=== PATIENT | female | born 1960 | race American Indian/Alaskan Native ===

== ENCOUNTER 2018-08-01 08:39 | Outpatient (CLI) | payer MEDICARE ==
--- NOTE | 2018-08-01 10:11 | Mammography Report ---
Bilateral diagnostic mammogram, spot compression of densities left breast and sonogram right and left breast: No previous studies available for comparison. CAD study utilized. History: Bilateral breast lumps. Findings: Heterogeneous breast parenchyma bilaterally. Focal asymmetric densities left breast which appears normal breast parenchyma on spot compression views. No microcalcifications. Normal axilla. Sonographic examination of right and left breast reveals normal right breast. There is complex cyst identified at left breast at 2:00 position 5 cm from nipple. No abnormal color flow. Impression: Complex cyst 12:00 position left breast. No definite corresponding mass on mammogram. Probably benign. Six-month followup left mammogram and sonogram recommended. BI-RADS CATEGORY: 3 = Probably benign ACR BI-RADS MAMMOGRAPHIC CODES: 0 = Needs additional imaging evaluation; 1 = Negative; 2 = Benign; 3 = Probably benign; 4 = Suspicious; 5 = Malignant; 6 = Known biopsy-proven malignancy COMMENT: 1. Dense breast tissue, i.e., adenosis, fibrocystic changes, etc., may obscure an underlying neoplasm. 2. Approximately 10% of cancers are not detected with mammography. 3. A negative mammography report should not delay biopsy if a clinically suspicious mass is present. COMMENT: Patient follow-up letters are generated in [employer].
== END 2018-08-01 08:40 | disposition home or self-care (01) ==
LOC: SPVWC 08:39
PROVIDERS: ATTEND Internal Medicine
DX: N60.02 Solitary cyst of left breast (principal)
CPT/HCPCS: 77066

== ENCOUNTER 2019-02-13 13:57 | Emergency (ER) | payer MEDICARE, OTHER ==
--- NOTE | 2019-02-13 16:30 | Emergency Department Report ---
ED Chest Pain HPI - General Chief Complaint: Chest Pain Stated Complaint: CHEST PAIN Time Seen by Provider: 02/13/19 16:13 Source: patient, family, EMS Mode of arrival: Stretcher Limitations: Physical Limitation - History of Present Illness Initial Comments: Ms. 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 She was discharged in December from [facility] on [address]. Her blood sugar had dropped to zero at that time. Consequently, she was diagnosed with possible CVA. As a result of major CVA in 2004, she did not have use of her left side. As a result of severe hypoglycemia in December, she is unable to ambulate. Today her home health nurse and physical therapist today noticed that she was sleepier than normal. She has had extremity pain since discharge from hospital. Her PCP has evaluated her for hip pain last week. Today she had chest pain mild chest worse with inspiration. She describes a soreness. She is awake and able to give a full hx. PCP Dr. Ocasio Only medication mother can recall, daily nightly tramadol -: Gradual Onset: during rest Pain Location: substernal Severity: mild, moderate Quality: sharp Consistency: now resolved Worsens With: inspiration Context: recent illness, recent immobilization - Related Data Allergies Allergy/AdvReac Type Severity Reaction Status Date / Time No Known Allergies Allergy Unverified 02/13/19 18:13 Heart Score - HEART Score History: Slightly suspicious EKG: Non-specific Age: 45-65 Risk factors: 1-2 risk factors Troponin: < normal limit HEART Score: 3 ED Review of Systems ROS: Stated complaint: CHEST PAIN Other details as noted in HPI Comment: All other systems reviewed and negative Respiratory: shortness of breath. denies: cough Cardiovascular: chest pain ED Past Medical Hx - Past Medical History Previous Medical History?: Yes Hx CVA: Yes Hx Congestive Heart Failure: Yes Hx Diabetes: Yes - Surgical History Past Surgical History?: Yes Additional Surgical History: 2005, pancreas resection due to tumor - Social History Smoking Status: Never Smoker Substance Use Type: None ED Physical Exam - General Limitations: Physical Limitation (patient is able to give a full history) General appearance: alert, in no apparent distress, other (appears chronically ill easily arousable) - Head Head exam: Present: atraumatic, normocephalic - Eye Eye exam: Present: normal appearance - ENT ENT exam: Present: mucous membranes moist - Neck Neck exam: Present: normal inspection - Respiratory Respiratory exam: Present: normal lung sounds bilaterally. Absent: respiratory distress, wheezes, rales, rhonchi - Cardiovascular Cardiovascular Exam: Present: regular rate, normal rhythm, normal heart sounds. Absent: systolic murmur, diastolic murmur, rubs, gallop - GI/Abdominal GI/Abdominal exam: Present: soft, normal bowel sounds. Absent: distended, tenderness, guarding, rebound - Back Exam Back exam: Present: normal inspection - Neurological Exam Neurological exam: Present: alert, oriented X3 - Psychiatric Psychiatric exam: Present: normal mood, flat affect - Skin Skin exam: Present: warm, dry, intact, normal color. Absent: rash ED Course Vital Signs 02/13/19 02/13/19 02/13/19 14:56 15:01 15:15 Temperature 98.1 F Pulse Rate 91 H 90 90 Respiratory 14 13 12 Rate Blood Pressure 133/88 134/90 Blood Pressure [Left] O2 Sat by Pulse 100 Oximetry 02/13/19 02/13/19 02/13/19 15:31 15:45 16:01 Temperature Pulse Rate 92 H 90 89 Respiratory 13 12 12 Rate Blood Pressure 134/93 133/90 134/89 Blood Pressure [Left] O2 Sat by Pulse 100 100 100 Oximetry 02/13/19 02/13/19 02/13/19 16:15 16:31 16:45 Temperature Pulse Rate 92 H 91 H 94 H Respiratory 13 11 L 12 Rate Blood Pressure 136/88 139/91 140/97 Blood Pressure [Left] O2 Sat by Pulse 100 100 100 Oximetry 02/13/19 02/13/19 02/13/19 17:01 17:15 17:31 Temperature Pulse Rate 100 H 96 H 95 H Respiratory 16 15 17 Rate Blood Pressure 140/97 131/98 141/95 Blood Pressure [Left] O2 Sat by Pulse 100 100 100 Oximetry 02/13/19 02/13/19 02/13/19 17:45 18:01 18:51 Temperature Pulse Rate 92 H 102 H 89 Respiratory 12 12 11 L Rate Blood Pressure 137/93 133/98 Blood Pressure [Left] O2 Sat by Pulse 100 100 100 Oximetry 02/13/19 19:15 Temperature 97.6 F Pulse Rate 88 Respiratory 12 Rate Blood Pressure Blood Pressure 136/93 [Left] O2 Sat by Pulse 100 Oximetry ED Medical Decision Making - Lab Data Result diagrams: 02/13/19 15:39 02/13/19 15:39 - EKG Data 02/13/19 16:30 EKG obtained at 1547 Rate 90 beats a minute normal sinus rhythm normal axis left bundle branch block no ST elevation enlarged P waves - Medical Decision Making Ms. Wilder presents with chest pain and lethargy. No indication of ACS. CTA negative for PE. She has been awake and alert the entire ED encounter. She ate a food tray prior to discharge. labs reviewed unremarkable dc home no chest pain upon discharge Critical care attestation.: If time is entered above; I have spent that time in minutes in the direct care of this critically ill patient, excluding procedure time. ED Disposition Clinical Impression: Chest pain, Lethargy Disposition: DC-01 TO HOME OR SELFCARE Is pt being admited?: No Does the pt Need Aspirin: No Condition: Stable Instructions: Chest Pain (ED)
[2019-02-13 17:15] LABS: Basophils % (Auto) 1.6 % (0.0-1.8); Eosinophils % (Auto) 0.9 % (0.0-4.3); Hematocrit 33.1 % (30.3-42.9); Hemoglobin 10.8 gm/dl (10.1-14.3); Lymphocytes # (Auto) 1.2 K/mm3 (1.2-5.4); Lymphocytes % (Auto) 40.5 % (13.4-35.0); Mean Corpuscular HGB Conc 33 % (30-34); Mean Corpuscular Volume 99 fl (79-97); Monocytes # (Auto) 0.3 K/mm3 (0.0-0.8); Monocytes % (Auto) 10.1 % (0.0-7.3); Platelet Count 281 K/mm3 (140-440); Red Blood Count 3.33 M/mm3 (3.65-5.03); Red Cell Distribution Width 19.9 % (13.2-15.2)
[2019-02-13 17:28] LABS: BUN/Creatinine Ratio 27; Blood Urea Nitrogen 24 mg/dL (7-17); Calcium 8.5 mg/dL (8.4-10.2); Hemolysis Index 21
--- NOTE | 2019-02-13 17:29 | XRay Report ---
PROCEDURE: XR CHEST 1V AP TECHNIQUE: Frontal portable view of the chest HISTORY: Chest Pain COMPARISONS: None FINDINGS: There is prominence of the interstitial markings in both lungs with peribronchial thickening, acute v ersus chronic. There are patchy areas of pulmonary consolidation in both lung bases. Atelectasis versus infiltrates. There is no evidence of pneumothorax or pleural fluid collection. There is mild prominence of the pulmonary venous vasculature suggestive of pulmonary venous congestio n. The cardiac silhouette is enlarged. The thoracic aorta is mildly tortuous. The bony structures are notable for mild dextrocurvature of the thoracic spine. IMPRESSION: 1. Enlarged cardiac silhouette. 2. Prominence of the interstitial markings with peribronchial thickening, acute versus chronic with t he appearance of pulmonary venous congestion and atelectasis versus infiltrates both lung bases. A component of CHF needs to be considered. An acute infectious process cannot entirely be excluded. Comparison with previous imaging studies would be helpful. If further imaging is required, PA and lat eral views of the chest or CT chest may be helpful. This document is electronically signed by Grace Fan MD., Feb 13 2019 05:27:26 PM ET
[2019-02-13 18:01] LABS: Bilirubin,Urine NEG (Negative); Blood,Urine NEG (Negative); Color,Urine Yellow (Yellow); Mucus,Urine FEW /HPF; Protein,Urine <15 mg/dL mg/dL (Negative); RBC,Urine < 1.0 /HPF (0.0-6.0); Urobilinogen,Urine < 2.0 mg/dL (<2.0)
[2019-02-13 18:07] LABS: Amphetamine Screen,Urine PRESUMPTIVE NEGATIVE; Benzodiazepines Screen,Urine PRESUMPTIVE NEGATIVE; Cannabinoid Screen,Urine PRESUMPTIVE NEGATIVE; Cocaine Screen,Urine PRESUMPTIVE NEGATIVE; Methadone Screen,Urine PRESUMPTIVE NEGATIVE; Opiate Screen,Urine PRESUMPTIVE NEGATIVE
--- NOTE | 2019-02-13 19:23 | Cat Scan Report ---
PROCEDURE: CT ANGIOGRAM OF THE CHEST FOR PULMONARY EMBOLISM TECHNIQUE: Computerized axial tomographic angiography of the chest and pulmonary arteries was perfor med after the IV injection of iodinated nonionic contrast. The image data was postprocessed using max imum intensity projection (MIP) and 2-dimensional multiplanar reformatted (MPR) techniques. The exami nation is specifically tailored to the evaluation of the pulmonary arteries per clinical request. Au tomated exposure control, adjustment of mA and/or kV according to patient size, or iterative reconstr uction dose optimization techniques were utilized. CPT G9637, 92491 HISTORY: Shortness of breath R06.02, chest pain unspecified R07.9 , COMPARISONS: None . FINDINGS: Heart and pericardium: Prominent heart size. Small pericardial effusion, measuring 7 mm in thickness. Thoracic aorta: Normal. Pulmonary vasculature: Normal. No pulmonary emboli. Lymph nodes: No enlarged thoracic lymph nodes. Lungs: Normal. Pleural space: No effusion, thickening, or pneumothorax. Musculoskeletal structures: No significant abnormality. Upper abdominal structures: Mild left hydronephrosis. IMPRESSION: No evidence of pulmonary emboli. There is mild left hydronephrosis, of uncertain etiology. This document is electronically signed by Gemma Vela MD., Feb 13 2019 07:20:54 PM ET
[2019-02-13 19:54] VITALS: BP 136/93
[2019-02-13] MEDS ORDERED: BENADRYL IV ONE (20:20)
== END 2019-02-13 20:30 | disposition home or self-care (01) ==
LOC: ED 13:57
DX: R53.83 Other fatigue (principal); R07.89 Other chest pain; R06.02 Shortness of breath; I11.0 Hypertensive heart disease with heart failure; I50.9 Heart failure, unspecified; E11.9 Type 2 diabetes mellitus without complications; Z86.73 Personal history of transient ischemic attack (TIA), and cerebral infarction without residual deficits
CPT/HCPCS: 36415; 71045; 71275; 80048; 80307; 81001; 84484; 85025; 85379; 93005; 93010; 96374; 99285; J1200; Q9967

== ENCOUNTER 2019-08-23 12:40 | Outpatient (CLI) | payer MEDICARE ==
--- NOTE | 2019-08-26 16:09 | Mammography Report ---
DIGITAL SCREENING MAMMOGRAM WITH CAD, 08/23/2019 INDICATION: Routine screening mammography. TECHNIQUE: Digital bilateral 2D mammography was obtained in the craniocaudal and mediolateral obliq ue projections. This examination was interpreted with the benefit of Computer-Aided Detection analysi s. COMPARISON: 08/01/2018 FINDINGS: Breast Density: The breasts are heterogeneously dense, which may obscure small masses. There is no evidence of dominant mass, suspicious calcifications or architectural distortion in eithe r breast. IMPRESSION: No mammographic evidence of malignancy. Follow up recommendation: Routine yearly BI-RADS Category 1: Negative. A "normal" or negative report should not discourage follow up or biopsy of a clinically significant f inding. A written summary of these findings will be mailed to the patient. The patient will be entered into a mammography reporting system which will generate a reminder letter for the patient's next appointmen t at the appropriate interval. The [employer] recommends yearly mammograms starting at age 40 and continuing as l rolando as a woman is in good health. Breast MRI is recommended for women with an approximate 20-25% or greater lifetime risk of breast cancer, including women with a strong family history of breast or ova bill cancer or who have been treated for Hodgkin's disease. Signer Name: Tonio Fletcher MD Signed: 08/26/2019 4:05 PM Workstation Name: [id number]
== END 2019-08-23 12:41 | disposition home or self-care (01) ==
LOC: SPVWC 12:40
PROVIDERS: ATTEND Internal Medicine
DX: Z12.31 Encounter for screening mammogram for malignant neoplasm of breast (principal)
CPT/HCPCS: 77067

== ENCOUNTER 2022-01-17 02:57 | Inpatient (IN) | payer MEDICARE ==
--- NOTE | 2022-01-17 03:27 | Emergency Department Report ---
ED General Adult HPI - General Chief complaint: Altered Mental Status Stated complaint: LOW BLOOD SUGAR Time Seen by Provider: 01/17/22 03:26 Source: EMS Mode of arrival: Stretcher Limitations: Altered Mental Status - History of Present Illness Initial comments: patient presents / being found unresponsive by her family member. Per EMS, by the time they got there, the police had been doing 1 round of CPR. Patient however had a pulse. Her BG was found to be 32. She received an amp of D50W after whcvih her BG was up to the 110a and she woke up. Patient here is somnolent but easily arousable to verbal stimuli. Now complaining only of CP. Denies SOB, abd pain, focal numbness or weakness. - Related Data Home Medications Medication Instructions Recorded Confirmed Last Taken Aspirin [Aspirin BABY CHEW TAB] 81 mg PO DAILY 09/11/20 01/17/22 09/08/20 AtorvaSTATin [Lipitor] 40 mg PO DAILY 09/11/20 01/17/22 09/08/20 10:00 Cholecalciferol (Vitamin D3) 10,000 units PO DAILY 09/11/20 01/17/22 09/08/20 [Vitamin D3 10,000 unit] Escitalopram [Lexapro] 20 mg PO DAILY 09/11/20 01/17/22 09/08/20 10:00 Furosemide [Lasix TAB] 40 mg PO Q48HR 09/11/20 01/17/22 09/08/20 10:00 Insulin Detemir [Levemir VIAL] 10 unit SUB-Q QHS 09/11/20 01/17/22 Unknown Magnesium Oxide 400 mg PO DAILY 09/11/20 01/17/22 09/08/20 10:00 Metoprolol [Lopressor TAB] 50 mg PO BID 09/11/20 01/17/22 09/08/20 22:00 NovoLOG 100 UNITS/ML VIAL See Protocol SUB-Q DAILY 09/11/20 01/17/22 09/08/20 levETIRAcetam [Keppra TAB] 500 mg PO DAILY 09/11/20 01/17/22 09/08/20 10:00 Previous Rx's Medication Instructions Recorded Last Taken Type Ibuprofen [Motrin 400 MG tab] 400 mg PO Q8H PRN #30 tablet 09/14/20 Unknown Rx Allergies Allergy/AdvReac Type Severity Reaction Status Date / Time No Known Allergies Allergy Unverified 02/13/19 18:13 ED Review of Systems ROS: Stated complaint: LOW BLOOD SUGAR Other details as noted in HPI Comment: All other systems reviewed and negative Constitutional: denies: chills, fever ED Past Medical Hx - Past Medical History Hx Hypertension: Yes Hx CVA: Yes Hx Heart Attack/AMI: No Hx Congestive Heart Failure: No Hx Diabetes: No Hx Pulmonary Embolism: No Hx Liver Disease: No Hx Renal Disease: No Hx Arthritis: No Hx Seizures: No Hx Kidney Stones: No Hx Asthma: No Hx COPD: No Hx Tuberculosis: No Hx Dementia: No Hx HIV: No - Surgical History Hx Coronary Stent: No Hx Open Heart Surgery: No Hx Internal Defibrillator: No Hx Cholecystectomy: No Hx Appendectomy: No Additional Surgical History: 2005, pancreas resection due to tumor - Social History Smoking Status: Unknown if ever smoked Substance Use Type: None - Medications Home Medications: Home Medications Medication Instructions Recorded Confirmed Last Taken Type Aspirin [Aspirin BABY CHEW TAB] 81 mg PO DAILY 09/11/20 01/17/22 09/08/20 History AtorvaSTATin [Lipitor] 40 mg PO DAILY 09/11/20 01/17/22 09/08/20 10:00 History Cholecalciferol (Vitamin D3) 10,000 units PO DAILY 09/11/20 01/17/22 09/08/20 History [Vitamin D3 10,000 unit] Escitalopram [Lexapro] 20 mg PO DAILY 09/11/20 01/17/22 09/08/20 10:00 History Furosemide [Lasix TAB] 40 mg PO Q48HR 09/11/20 01/17/22 09/08/20 10:00 History Insulin Detemir [Levemir VIAL] 10 unit SUB-Q QHS 09/11/20 01/17/22 Unknown History Magnesium Oxide 400 mg PO DAILY 09/11/20 01/17/22 09/08/20 10:00 History Metoprolol [Lopressor TAB] 50 mg PO BID 09/11/20 01/17/22 09/08/20 22:00 History NovoLOG 100 UNITS/ML VIAL See Protocol SUB-Q DAILY 09/11/20 01/17/22 09/08/20 History levETIRAcetam [Keppra TAB] 500 mg PO DAILY 09/11/20 01/17/22 09/08/20 10:00 History Ibuprofen [Motrin 400 MG tab] 400 mg PO Q8H PRN #30 tablet 09/14/20 01/17/22 Unknown Rx ED Physical Exam - General Limitations: Altered Mental Status General appearance: other (somnolent but reponsive to verbal stimuli) - Head Head exam: Present: atraumatic, normocephalic - Eye Eye exam: Present: PERRL, EOMI - ENT ENT exam: Present: mucous membranes moist, other (airway patent) - Neck Neck exam: Present: other (supple; no JVD) - Respiratory Respiratory exam: Present: other (good air entry, nml I:E, CTAB, no use of LUIGI; tender to palpation over sternum and in bilateral paraternal areas) - Cardiovascular Cardiovascular Exam: Present: regular rate. Absent: rubs, gallop - GI/Abdominal GI/Abdominal exam: Present: soft, normal bowel sounds. Absent: distended, tenderness - Extremities Exam Extremities exam: Present: full ROM. Absent: tenderness - Back Exam Back exam: Present: other (no step offs). Absent: vertebral tenderness - Neurological Exam Neurological exam: Present: oriented X3, CN II-XII intact, other (GCS 14/15 ([id number])). Absent: motor sensory deficit ED Course Vital Signs 01/17/22 01/17/22 01/17/22 03:02 03:21 03:30 Temperature 92.5 F L Pulse Rate 58 L 62 62 Respiratory 18 16 14 Rate Blood Pressure 183/98 197/102 Blood Pressure 197/102 [Right] O2 Sat by Pulse 99 100 100 Oximetry 01/17/22 01/17/22 01/17/22 03:46 04:00 04:16 Temperature Pulse Rate 62 63 65 Respiratory 16 17 15 Rate Blood Pressure 190/94 190/94 188/92 Blood Pressure [Right] O2 Sat by Pulse 99 100 100 Oximetry 01/17/22 01/17/22 01/17/22 04:30 04:46 05:00 Temperature Pulse Rate 61 67 61 Respiratory 11 L 15 12 Rate Blood Pressure 169/83 190/79 151/82 Blood Pressure [Right] O2 Sat by Pulse 99 99 98 Oximetry 01/17/22 01/17/22 05:24 05:30 Temperature Pulse Rate 66 64 Respiratory 19 12 Rate Blood Pressure 143/85 143/85 Blood Pressure [Right] O2 Sat by Pulse 99 99 Oximetry ED Medical Decision Making - Lab Data Result diagrams: 01/17/22 04:12 01/17/22 04:12 Laboratory Tests 01/17/22 01/17/22 01/17/22 03:30 04:12 04:12 WBC 5.4 RBC 4.17 Hgb 13.1 Hct 40.7 MCV 98 H MCH 31 MCHC 32 RDW 14.3 Plt Count 258 Lymph % (Auto) 32.6 [place] % (Auto) 5.7 Eos % (Auto) 0.8 Baso % (Auto) 0.5 Lymph # (Auto) 1.8 [place] # (Auto) 0.3 Eos # (Auto) 0.0 Baso # (Auto) 0.0 Seg Neutrophils % 60.4 Seg Neutrophils # 3.2 Sodium 137 Potassium 4.6 Chloride 104.1 Carbon Dioxide 21 L Anion Gap 17 BUN 24 H Creatinine 1.0 Estimated GFR > 60 BUN/Creatinine Ratio 24 Glucose 117 H POC Glucose 112 H Calcium 9.9 Total Bilirubin 0.30 AST 32 ALT 16 Alkaline Phosphatase 115 Troponin T < 0.010 Total Protein 8.3 H Albumin 4.2 Albumin/Globulin Ratio 1.0 01/17/22 04:54 WBC RBC Hgb Hct MCV MCH MCHC RDW Plt Count Lymph % (Auto) [place] % (Auto) Eos % (Auto) Baso % (Auto) Lymph # (Auto) [place] # (Auto) Eos # (Auto) Baso # (Auto) Seg Neutrophils % Seg Neutrophils # Sodium Potassium Chloride Carbon Dioxide Anion Gap BUN Creatinine Estimated GFR BUN/Creatinine Ratio Glucose POC Glucose 94 Calcium Total Bilirubin AST ALT Alkaline Phosphatase Troponin T Total Protein Albumin Albumin/Globulin Ratio EKG: HR 60, SR (p waves present in II with regular RR intervals), wide QRS with upright RSR priming in V6 c/w LBBB; old compared with 02/13/2019 CXR: no acute cardiopulmonary process CT head: no acute intracranial abnormality Critical care attestation.: If time is entered above; I have spent that time in minutes in the direct care of this critically ill patient, excluding procedure time. ED Disposition Clinical Impression: Hypoglycemia, Unresponsiveness Hypothermia Qualifiers: Encounter type: initial encounter Qualified Code(s): T68.XXXA - Hypothermia, initial encounter Disposition: 09 ADMITTED INPATIENT Is pt being admited?: Yes Does the pt Need Aspirin: No Condition: Stable Time of Disposition: 06:10 (Patient admitted to Dr. Fine. Sign out was given by me to the admitting physician. )
[2022-01-17 04:21] LABS: Basophils % (Auto) 0.5 % (0.0-1.8); Eosinophils % (Auto) 0.8 % (0.0-4.3); Hematocrit 40.7 % (30.3-42.9); Hemoglobin 13.1 gm/dl (10.1-14.3); Lymphocytes # (Auto) 1.8 K/mm3 (1.2-5.4); Lymphocytes % (Auto) 32.6 % (13.4-35.0); Mean Corpuscular HGB Conc 32 % (30-34); Mean Corpuscular Volume 98 fl (79-97); Monocytes # (Auto) 0.3 K/mm3 (0.0-0.8); Monocytes % (Auto) 5.7 % (0.0-7.3); Platelet Count 258 K/mm3 (140-440); Red Blood Count 4.17 M/mm3 (3.65-5.03); Red Cell Distribution Width 14.3 % (13.2-15.2)
[2022-01-17 04:44] LABS: Alanine Aminotransferase 16 units/L (7-56); Albumin 4.2 g/dL (3.9-5); BUN/Creatinine Ratio 24; Blood Urea Nitrogen 24 mg/dL (7-17); Calcium 9.9 mg/dL (8.4-10.2); Hemolysis Index 20
--- NOTE | 2022-01-17 05:21 | XRay Report ---
Chest with RIBS bilateral INDICATION: Chest pain IMPRESSION: The lungs are hyperexpanded with emphysematous change. No displaced rib fracture identifi ed. Signer Name: Roberto Quintanilla MD Signed: 01/17/2022 5:16 AM Workstation Name: [id number]
--- NOTE | 2022-01-17 05:36 | Cat Scan Report ---
CT head without contrast INDICATION : Loss of consciousness. TECHNIQUE: Axial imaging performed from the skull apex through the skull base without the use of con trast. All CT examinations performed at this facility utilize dose modulation, iterative reconstruct ion or weight-based dosing, when appropriate, to reduce radiation dose to as low as reasonably achiev able. COMPARISON: None FINDINGS: No acute intracranial hemorrhage. Chronic encephalomalacia within the right frontoparietal lobe consistent with large chronic right MCA distribution infarct. No extra-axial collection. No hyd rocephalus. The orbits are unremarkable. The paranasal sinuses are clear. IMPRESSION: No acute intracranial abnormality or change from 09/10/2020. Signer Name: Roberto Quintanilla MD Signed: 01/17/2022 5:32 AM Workstation Name: [id number]
[2022-01-17] MEDS ORDERED: SODIUM CHLORIDE 0.9% 500 ML 500 ML ONE (06:32)
[2022-01-17] MEDS ORDERED: SODIUM CHLORIDE 0.9% 500 ML 500 ML IV ONE (06:35)
--- NOTE | 2022-01-17 08:06 | History and Physical Report ---
History of Present Illness History of present illness: HPI: 61-year-old female with past medical history of type 1 diabetes, insulinoma status post resection in 2005, stroke with residual left-sided deficits presenting to our facility with altered mental status. Per EMS, patient was unresponsive and police had been completing 1 round of CPR. However the patient did have a pulse her blood sugar was also found to be 32. She received an amp of D50 W and blood sugars increased to 110. Patient subsequently woke up however was somnolent and was transferred to our facility. Mother was present at bedside. Per the mother patient was having very variable blood sugar readings. She had elevated blood sugar reading in the 200s around lunch and patient was administered 6 units of regular insulin per the mother. She subsequently had low blood sugar reading in the evening and thus the patient had her evening long-acting insulin held. The patient stated that she was feeling much better on my encounter. She does not remember being encephalopathic when EMS had arrived to her residence. Remainder of ROS negative except for stated above Of note, patient has been diabetic since her insulinoma was removed in 2005. She follows with endocrinology outpatient and states that she takes both short and long-acting insulin. She did not know the exact dosages states that her mother helps her manage her insulin. When questioning the mother the mother stated she administers insulin on sliding scale and long-acting most nights. The mother and patient did not know the patient's hemoglobin A1c. PMHx: type 1 diabetes, insulinoma status post resection in 2005, stroke with residual left-sided deficits PSHx: Resection of insulinoma FHx: Reviewed noncontributory SHx: Tobacco use- ETOH Use-denies denies Recreational Drug Use- denies PCP-Dr. Majano Medications and Allergies Allergies Allergy/AdvReac Type Severity Reaction Status Date / Time No Known Allergies Allergy Unverified 02/13/19 18:13 Home Medications Medication Instructions Recorded Confirmed Last Taken Type Aspirin [Aspirin BABY CHEW TAB] 81 mg PO DAILY 09/11/20 01/17/22 09/08/20 H istory AtorvaSTATin [Lipitor] 40 mg PO DAILY 09/11/20 01/17/22 09/08/20 10:00 History Cholecalciferol (Vitamin D3) 10,000 units PO DAILY 09/11/20 01/17/22 09/08/20 History [Vitamin D3 10,000 unit] Escitalopram [Lexapro] 20 mg PO DAILY 09/11/20 01/17/22 09/08/20 10:00 History Furosemide [Lasix TAB] 40 mg PO Q48HR 09/11/20 01/17/22 09/08/20 10:00 History Insulin Detemir [Levemir VIAL] 10 unit SUB-Q QHS 09/11/20 01/17/22 Unknown History Magnesium Oxide 400 mg PO DAILY 09/11/20 01/17/22 09/08/20 10:00 History Metoprolol [Lopressor TAB] 50 mg PO BID 09/11/20 01/17/22 09/08/20 22:00 History NovoLOG 100 UNITS/ML VIAL See Protocol SUB-Q DAILY 09/11/20 01/17/22 09/08/20 History levETIRAcetam [Keppra TAB] 500 mg PO DAILY 09/11/20 01/17/22 09/08/20 10:00 History Ibuprofen [Motrin 400 MG tab] 400 mg PO Q8H PRN #30 tablet 09/14/20 01/17/22 Unknown Rx Active Meds: Active Medications Acetaminophen (Acetaminophen 325 Mg Tab) 650 mg PO Q4H PRN PRN Reason: Pain MILD(1-3)/Fever >100.5/SANCHEZ Dextrose (Dextrose 50% In Water (25gm) 50 Ml Syringe) 50 ml IV Q30MIN PRN; Protocol PRN Reason: Hypoglycemia Enoxaparin Sodium (Enoxaparin 40 Mg/0.4 Ml Inj) 40 mg SUB-Q QDAY JAKE Insulin Human Lispro (Insulin Lispro 100 Unit/Ml) 0 unit SUB-Q ACHS JAKE; Pro tocol Ondansetron HCl (Ondansetron 4 Mg/2 Ml Inj) 4 mg IV Q8H PRN PRN Reason: Nausea And Vomiting Oxycodone/Acetaminophen (Oxycodone /Acetaminophen 5-325mg Tab) 1 tab PO Q6H PRN PRN Reason: Pain, Moderate (4-6) Sodium Chloride (Sodium Chloride 0.9% 10 Ml Flush Syringe) 10 ml IV BID JAKE Sodium Chloride (Sodium Chloride 0.9% 10 Ml Flush Syringe) 10 ml IV PRN PRN PRN Reason: LINE FLUSH Exam - Physical Exam Narrative exam: Physical Exam: VITAL SIGNS: Reviewed. GENERAL: The patient appears normally developed, Vital signs as documented. HEAD: No signs of head trauma. EYES: Pupils are equal. Extraocular motions intact. EARS: Hearing grossly intact. MOUTH: Oropharynx is normal. NECK: No adenopathy, no JVD. CHEST: Chest with clear breath sounds bilaterally. No wheezes, rales, or rhonchi. CARDIAC: Regular rate and rhythm. S1 and S2, without murmurs, gallops, or rubs. VASCULAR: No Edema. Peripheral pulses normal and equal in all extremities. ABDOMEN: Soft, non tender and non distended. No rebound or guarding, and no masses palpated. Bowel Sounds normal. MUSCULOSKELETAL: Good range of motion of all major joints. Extremities without clubbing, cyanosis or edema. NEUROLOGIC EXAM: Alert and oriented x 4. no focal sensory or strength deficits. PSYCHIATRIC: Mood normal. SKIN: detail exam as documented in skin assessment - Constitutional Vitals: Temp Pulse Resp BP Pulse Ox 97.8 F 78 13 94/51 98 01/17/22 06:30 01/17/22 08:02 01/17/22 08:02 01/17/22 08:02 01/17/22 08:02 HEART Score - HEART Score Troponin: Troponin T < 0.010 ng/mL (0.00-0.029) 01/17/22 04:12 Results - Labs CBC & Chem 7: 01/17/22 04:12 01/17/22 04:12 Labs: Laboratory Last Values WBC 5.4 K/mm3 (4.5-11.0) 01/17/22 04:12 RBC 4.17 M/mm3 (3.65-5.03) 01/17/22 04:12 Hgb 13.1 gm/dl (10.1-14.3) 01/17/22 04:12 Hct 40.7 % (30.3-42.9) 01/17/22 04:12 MCV 98 fl (79-97) H 01/17/22 04:12 MCH 31 pg (28-32) 01/17/22 04:12 MCHC 32 % (30-34) 01/17/22 04:12 RDW 14.3 % (13.2-15.2) 01/17/22 04:12 Plt Count 258 K/mm3 (140-440) 01/17/22 04:12 Lymph % (Auto) 32.6 % (13.4-35.0) 01/17/22 04:12 Dare % (Auto) 5.7 % (0.0-7.3) 01/17/22 04:12 Eos % (Auto) 0.8 % (0.0-4.3) 01/17/22 04:12 Baso % (Auto) 0.5 % (0.0-1.8) 01/17/22 04:12 Lymph # (Auto) 1.8 K/mm3 (1.2-5.4) 01/17/22 04:12 Dare # (Auto) 0.3 K/mm3 (0.0-0.8) 01/17/22 04:12 Eos # (Auto) 0.0 K/mm3 (0.0-0.4) 01/17/22 04:12 Baso # (Auto) 0.0 K/mm3 (0.0-0.1) 01/17/22 04:12 Seg Neutrophils % 60.4 % (40.0-70.0) 01/17/22 04:12 Seg Neutrophils # 3.2 K/mm3 (1.8-7.7) 01/17/22 04:12 Sodium 137 mmol/L (137-145) 01/17/22 04:12 Potassium 4.6 mmol/L (3.6-5.0) 01/17/22 04:12 Chloride 104.1 mmol/L (98-107) 01/17/22 04:12 Carbon Dioxide 21 mmol/L (22-30) L 01/17/22 04:12 Anion Gap 17 mmol/L 01/17/22 04:12 BUN 24 mg/dL (7-17) H 01/17/22 04:12 Creatinine 1.0 mg/dL (0.6-1.2) 01/17/22 04:12 Estimated GFR > 60 ml/min 01/17/22 04:12 BUN/Creatinine Ratio 24 % 01/17/22 04:12 Glucose 117 mg/dL (65-100) H 01/17/22 04:12 POC Glucose 131 mg/dL (70-105) H 01/17/22 06:54 Calcium 9.9 mg/dL (8.4-10.2) 01/17/22 04:12 Total Bilirubin 0.30 mg/dL (0.1-1.2) 01/17/22 04:12 AST 32 units/L (5-40) 01/17/22 04:12 ALT 16 units/L (7-56) 01/17/22 04:12 Alkaline Phosphatase 115 units/L (35-129) 01/17/22 04:12 Troponin T < 0.010 ng/mL (0.00-0.029) 01/17/22 04:12 Total Protein 8.3 g/dL (6.3-8.2) H 01/17/22 04:12 Albumin 4.2 g/dL (3.9-5) 01/17/22 04:12 Albumin/Globulin Ratio 1.0 % 01/17/22 04:12 Assessment and Plan Assessment and plan: Assessment and Plan #Acute metabolic encephalopathy (resolved) - due to hypoglyemic from overadmin of insulin - resolved #Hypoglycemia -likely over medication insulin - hypoglycemic protocol #Type 1 diabetes - on insulin at home, managed by patient mother - need diabetic education on insulin - unknown a1c. ordered - SSI, hypoglycemic protocol for now - acuchecks q1hr until blood sugars consistently above 110. -Follows with endocrinology outpatient #Hypotension - NS bolus - blood pressure in 90's systolic - blood pressure improved to 110/60 on bedside monitor #history of insulinoma - s/p resection in 2005. #History of stroke with residual left-sided deficits -Fall precautions #History of congestive heart failure unspecified ejection fraction Does not appear to be an active exacerbation, not requiring supplemental oxygen Dispo: IMCU, likely discharge home tomorrow if blood sugars improved. The high probability of a clinically significant, sudden or life threatening deterioration of the [multi] system(s) required my full and direct attention, intervention and personal management. The aggregate critical care time was [60] minutes. This time is in addition to time spent performing reported procedures but includes the following: [x] Data Review and interpretation [x] Patient assessment and monitoring of vital signs [x] Documentation [x] Medication orders and management
[2022-01-17] MEDS ORDERED: DEXTROSE 50% IN WATER (25GM) 50 ML SYRINGE IV PRN (08:30)
[2022-01-17] MEDS ORDERED: ONDANSETRON 4 MG/2 ML INJ IV PRN (08:30)
[2022-01-17] MEDS ORDERED: ACETAMINOPHEN 325 MG TAB PO PRN (08:30)
[2022-01-17] MEDS ORDERED: ENOXAPARIN 40 MG/0.4 ML INJ SUB-Q SCH (10:00)
[2022-01-17] MEDS: INSULIN LISPRO 100 UNIT/ML SUB-Q SCH ×3 (11:52→22:25)
[2022-01-18] MEDS: oxyCODONE /ACETAMINOPHEN 5-325MG TAB PO PRN ×3 (04:49→20:41)
[2022-01-18] MEDS: SODIUM CHLORIDE 0.9% 1000 ML 1,000 ML IV SCH ×2 (04:49→20:41)
[2022-01-18 08:25] LABS: Basophils % (Auto) 0.7 % (0.0-1.8); Eosinophils # (Auto) 0.1 K/mm3 (0.0-0.4); Eosinophils % (Auto) 1.7 % (0.0-4.3); Hematocrit 32.7 % (30.3-42.9); Hemoglobin 10.8 gm/dl (10.1-14.3); Lymphocytes # (Auto) 2.4 K/mm3 (1.2-5.4); Lymphocytes % (Auto) 50.4 % (13.4-35.0); Mean Corpuscular HGB Conc 33 % (30-34); Mean Corpuscular Volume 97 fl (79-97); Monocytes # (Auto) 0.4 K/mm3 (0.0-0.8); Monocytes % (Auto) 8.8 % (0.0-7.3); Platelet Count 230 K/mm3 (140-440); Red Blood Count 3.38 M/mm3 (3.65-5.03); Red Cell Distribution Width 14.2 % (13.2-15.2)
--- NOTE | 2022-01-18 08:38 | Discharge Summary ---
Providers - Providers Date of Admission: 01/17/22 07:48 Date of discharge: 01/18/22 Attending physician: ANTONIO DÍAZ 01/17/22 08:04 Consult to Dietitian/Nutrition [CONS] Routine Physician Instructions: Reason For Exam: Reason for Consult: Diet education Primary care physician: PRESS OPERATOR [employer] Hospitalization Condition: Stable Hospital course: 61-year-old female with a history of insulin-dependent diabetes, insulinoma resected 2016, CVA with left hemiparesis presented with altered mental status. Patient diagnosed with acute metabolic encephalopathy secondary to hypoglycemia. Patient's blood sugar was 22. Had episode of taking regular insulin without adequate p.o. intake. Patient usually takes sliding scale insulin and long- acting Levemir. Patient and family member had difficulty knowing exactly how they were taking insulin. Was questionable at best. Needed per Dr. Romero diabetic education. Patient follows up with head pumper and Dr. Majano as outpatient. Patient Accu-Cheks have been adequate today 131, 118 and 138. Stable to be discharged with sliding scale insulin and 10 units of Lantus in the p.m. Disposition: 01 HOME / SELF CARE / HOMELESS Final Discharge Diagnosis (Prints w/discharge instructions): Acute metabolic encephalopathy secondary to hypoglycemia. Core Measure Documentation - Palliative Care Palliative Care/ Comfort Measures: Not Applicable - Core Measures Any of the following diagnoses?: none Exam - Constitutional Vitals: Temp Pulse Resp BP Pulse Ox 97.6 F 89 20 142/96 99 01/18/22 04:58 01/18/22 04:58 01/18/22 04:58 01/18/22 04:58 01/18/22 04:58 General appearance: Present: no acute distress, well-nourished - EENT Eyes: Present: PERRL ENT: hearing intact, clear oral mucosa - Neck Neck: Present: supple, normal ROM - Respiratory Respiratory effort: normal Respiratory: bilateral: CTA - Cardiovascular Heart Sounds: Present: S1 & S2. Absent: rub, click - Extremities Extremities: pulses symmetrical, No edema Peripheral Pulses: within normal limits - Abdominal General gastrointestinal: Present: soft, non-tender, non-distended, normal bowel sounds Female genitourinary: Present: normal - Integumentary Integumentary: Present: clear, warm, dry - Musculoskeletal Musculoskeletal: gait normal, strength equal bilaterally - Psychiatric Psychiatric: appropriate mood/affect, intact judgment & insight - Neurologic Neurologic: CNII-XII intact, moves all extremities Plan Activity: no restrictions Weight Bearing Status: Full Weight Bearing Diet: diabetic Special Instructions: other (Accu-Cheks 3 times daily.) Follow up with: PRIMARY CARE, [Primary Care Provider] - 7 Days
[2022-01-18] MEDS: INSULIN LISPRO 100 UNIT/ML SUB-Q SCH ×4 (09:20→23:36)
--- NOTE | 2022-01-18 13:59 | Event Note ---
Date: 01/18/22 S/w attendance secretary concerning consultation, explained I'm not on ER call for OBGYN today and to please contact the call center recruiter provider for consultation.
--- NOTE | 2022-01-18 17:39 | Event Note ---
Date: 01/18/22 Patient acute metabolic encephalopathy secondary to hypoglycemia. This was corrected. Patient stabilized to transfer home however prior to discharge patient developed vaginal bleeding. Then asked for further consultation with LOAN AUDITOR to establish outpatient follow-up versus more aggressive approach and inpatient treatment.
[2022-01-18 22:29] LABS: Bacteria,Urine 1+ /HPF (Negative); Bilirubin,Urine NEG (Negative); Blood,Urine LG (Negative); Color,Urine Yellow (Yellow); Mucus,Urine FEW /HPF; Urobilinogen,Urine < 2.0 mg/dL (<2.0)
[2022-01-18 22:31] LABS: WBC,Urine > 182.0 /HPF (0.0-6.0)
--- NOTE | 2022-01-19 03:54 | Consultation ---
History of Present Illness Consult date: 01/25/22 Requesting physician: RAQUEL HERRERA Reason for consult: other (Postmenopausal bleeding) History of present illness: 61 y/o reports a 10 month history of intermittent postmenopausal vaginal bleeding. Usually, the bleeding occurs monthly. The patient has not had a hysterectomy. Past History Family/Genetic History: diabetes Medications and Allergies Allergies Allergy/AdvReac Type Severity Reaction Status Date / Time No Known Allergies Allergy Unverified 02/13/19 18:13 Home Medications Medication Instructions Recorded Confirmed Last Taken Type Aspirin [Aspirin BABY CHEW TAB] 81 mg PO DAILY 09/11/20 01/17/22 09/08/20 History AtorvaSTATin [Lipitor] 40 mg PO DAILY 09/11/20 01/17/22 09/08/20 10:00 History Cholecalciferol (Vitamin D3) 10,000 units PO DAILY 09/11/20 01/17/22 09/08/20 History [Vitamin D3 10,000 unit] Escitalopram [Lexapro] 20 mg PO DAILY 09/11/20 01/17/22 09/08/20 10:00 History Furosemide [Lasix TAB] 40 mg PO Q48HR 09/11/20 01/17/22 09/08/20 10:00 History Insulin Detemir [Levemir VIAL] 10 unit SUB-Q QHS 09/11/20 01/17/22 Unknown History Magnesium Oxide 400 mg PO DAILY 09/11/20 01/17/22 09/08/20 10:00 History Metoprolol [Lopressor TAB] 50 mg PO BID 09/11/20 01/17/22 09/08/20 22:00 History NovoLOG 100 UNITS/ML VIAL See Protocol SUB-Q DAILY 09/11/20 01/17/22 09/08/20 History levETIRAcetam [Keppra TAB] 500 mg PO DAILY 09/11/20 01/17/22 09/08/20 10:00 History Ibuprofen [Motrin 400 MG tab] 400 mg PO Q8H PRN #30 tablet 09/14/20 01/17/22 Unknown Rx Abilify 2 mg PO HS 01/17/22 01/17/22 01/15/22 History Gabapentin 300 mg PO QID 01/17/22 01/17/22 01/16/22 History Active Meds: Active Medications Acetaminophen (Acetaminophen 325 Mg Tab) 650 mg PO Q4H PRN PRN Reason: Pain MILD(1-3)/Fever >100.5/SANCHEZ Dextrose (Dextrose 50% In Water (25gm) 50 Ml Syringe) 50 ml IV Q30MIN PRN; Protocol PRN Reason: Hypoglycemia Sodium Chloride (Nacl 0.9% 1000 Ml) 1,000 mls @ 100 mls/hr IV DIRECT JAKE Last Admin: 01/18/22 20:41 Dose: 100 mls/hr Insulin Human Lispro (Insulin Lispro 100 Unit/Ml) 0 unit SUB-Q ACHS JAKE; Protocol Last Admin: 01/18/22 23:36 Dose: 2 unit Ondansetron HCl (Ondansetron 4 Mg/2 Ml Inj) 4 mg IV Q8H PRN PRN Reason: Nausea And Vomiting Oxycodone/Acetaminophen (Oxycodone /Acetaminophen 5-325mg Tab) 1 tab PO Q6H PRN PRN Reason: Pain, Moderate (4-6) Last Admin: 01/18/22 20:41 Dose: 1 tab Sodium Chloride (Sodium Chloride 0.9% 10 Ml Flush Syringe) 10 ml IV BID [facility] Last Admin: 01/18/22 21:40 Dose: 10 ml Sodium Chloride (Sodium Chloride 0.9% 10 Ml Flush Syringe) 10 ml IV PRN PRN PRN Reason: LINE FLUSH Review of Systems All systems: negative - Vital Signs Vital signs: Vital Signs Pulse Resp BP Pulse Ox 58 L 18 183/98 99 01/17/22 03:02 01/17/22 03:02 01/17/22 03:02 01/17/22 03:02 Temp Pulse Resp BP Pulse Ox 98.4 F 82 18 139/80 91 01/18/22 17:16 01/18/22 17:16 01/18/22 17:16 01/18/22 17:16 01/18/22 17:16 - Physical Exam Lungs: Positive: Normal air movement Abdomen: Positive: normal appearance Extremities: Positive: normal Results Result Diagrams: 01/18/22 07:53 01/18/22 07:53 Abnormal lab results 01/17/22 01/18/22 01/18/22 Range/Units 22:00 07:38 07:53 RBC 3.38 L (3.65-5.03) M/mm3 Lymph % (Auto) 50.4 H (13.4-35.0) % [place] % (Auto) 8.8 H (0.0-7.3) % Seg Neutrophils % 38.4 L (40.0-70.0) % BUN (7-17) mg/dL Creatinine (0.6-1.2) mg/dL Glucose (65-100) mg/dL POC Glucose 174 H (70-105) mg/dL Urine WBC (Auto) > 182.0 H (0.0-6.0) /HPF 01/18/22 01/18/22 01/18/22 Range/Units 07:53 11:09 17:16 RBC (3.65-5.03) M/mm3 Lymph % (Auto) (13.4-35.0) % [place] % (Auto) (0.0-7.3) % Seg Neutrophils % (40.0-70.0) % BUN 36 H (7-17) mg/dL Creatinine 1.4 H (0.6-1.2) mg/dL Glucose 200 H (65-100) mg/dL POC Glucose 231 H 221 H (70-105) mg/dL Urine WBC (Auto) (0.0-6.0) /HPF 01/18/22 Range/Units 22:35 RBC (3.65-5.03) M/mm3 Lymph % (Auto) (13.4-35.0) % [place] % (Auto) (0.0-7.3) % Seg Neutrophils % (40.0-70.0) % BUN (7-17) mg/dL Creatinine (0.6-1.2) mg/dL Glucose (65-100) mg/dL POC Glucose 214 H (70-105) mg/dL Urine WBC (Auto) (0.0-6.0) /HPF All other labs normal. Ultrasound: pending (Transvaginal pelvic ultrasound ordered) Assessment and Plan - Patient Problems (1) Postmenopausal vaginal bleeding Current Visit: Yes Status: Acute Plan to address problem: Transvaginal pelvic ultrasound ordered. I recommend endometrial sampling to rule-out endometrial cancer. This can be done by either: 1.) endometrial biopsy in the office, or 2.) dilation and curettage in the hospital outpatient surgery center. As the patient is currently hemodynamically stable with a HgB that is WNL, it is reasonable to not treat the PMB with medications (e.g. Provera) until endometrial sampling has been determined to be benign.
[2022-01-19 06:43] VITALS: BP 140/73
--- NOTE | 2022-01-19 07:59 | Event Note ---
Date: 01/19/22 Patient may go hello yesterday secondary to vaginal bleeding.
--- NOTE | 2022-01-19 08:00 | Discharge Summary ---
Providers - Providers Date of Admission: 01/17/22 07:48 Date of discharge: 01/19/22 Attending physician: ANTONIO DÍAZ 01/17/22 08:04 Consult to Dietitian/Nutrition [CONS] Routine Physician Instructions: Reason For Exam: Reason for Consult: Diet education 01/18/22 14:10 Consult to Physician [CONS] Routine Comment: Consulting Provider: KARUNA BOSE Physician Instructions: do pt workup here or outpt Reason For Exam: vaginal bleeding Primary care physician: SENIOR CHEMICAL PROCESS ENGINEER Hospitalization Condition: Stable Hospital course: 61-year-old female with a history of insulin-dependent diabetes, insulinoma resected 2016, CVA with left hemiparesis presented with altered mental status. Patient diagnosed with acute metabolic encephalopathy secondary to hypoglycemia. Patient's blood sugar was 22. Had episode of taking regular insulin without adequate p.o. intake. Patient usually takes sliding scale insulin and long- acting Levemir. Patient and family member had difficulty knowing exactly how they were taking insulin. Was questionable at best. Needed per Provide diabetic education. Patient follows up with nursing project coordinator and Dr. Tamayo as outpatient. Patient Accu-Cheks have been adequate today 131, 118 and 138. Stable to be discharged with sliding scale insulin and 10 units of Lantus in the p.m. spoke to patient's mother in detail. She has been seeing nursing project coordinator Dr. Heidi Ventura for over 10 to 15 years and will follow up with her in 3 to 5 days. They have had a successful insulin regime for quite some time. Mother states it works better this way. Hospital course was complicated by vaginal bleeding. Patient has been bleeding vaginally for 10 months. Was worked up here in the by JIG BORING MACHINE OPERATOR FOR METAL and was recommended to have an endometrial biopsy. Patient family has chosen to have biopsy done endometrial biopsy done as outpatient. Disposition: 01 HOME / SELF CARE / HOMELESS Final Discharge Diagnosis (Prints w/discharge instructions): 1. Metabolic encephalopathy #2 hypoglycemia #3 postmenopausal bleeding Core Measure Documentation - Palliative Care Palliative Care/ Comfort Measures: Not Applicable - Core Measures Any of the following diagnoses?: none Exam - Constitutional Vitals: Temp Pulse Resp BP Pulse Ox 98.4 F 107 H 18 140/73 98 01/19/22 05:03 01/19/22 05:03 01/19/22 05:03 01/19/22 05:03 04/13/22 05:03 General appearance: Present: no acute distress, well-nourished - EENT Eyes: Present: PERRL ENT: hearing intact, clear oral mucosa - Neck Neck: Present: supple, normal ROM - Respiratory Respiratory effort: normal Respiratory: bilateral: CTA - Cardiovascular Heart Sounds: Present: S1 & S2. Absent: rub, click - Extremities Extremities: pulses symmetrical, No edema Peripheral Pulses: within normal limits - Abdominal General gastrointestinal: Present: soft, non-tender, non-distended, normal bowel sounds Female genitourinary: Present: normal - Integumentary Integumentary: Present: clear, warm, dry - Musculoskeletal Musculoskeletal: gait normal, strength equal bilaterally - Psychiatric Psychiatric: appropriate mood/affect, intact judgment & insight - Neurologic Neurologic: CNII-XII intact, moves all extremities Plan Activity: no restrictions Weight Bearing Status: Partial Weight Bearing Diet: diabetic Follow up with: PRIMARY CAREMD [Primary Care Provider] - 7 Days HEIDI TAMAYO MD [Staff Physician] - 7 Days MT REICH MD [Staff Physician] - 7 Days
[2022-01-19] MEDS: INSULIN LISPRO 100 UNIT/ML SUB-Q SCH (09:37)
--- NOTE | 2022-01-20 19:42 | Electrocardiograph Report ---
[facility] Test Date: 2022-01-17 Test Time: 03:42:40 Pat Name: DAREN RODRIGUEZ Department: Room: A369 Gender: F Fender Mechanic: IMANI Rouse : 1960 Requested By: OFELIA FUENTES Order Number: [id number] Reading MD: Carmel Ansari Measurements Intervals [place] Rate: 118 P: ID: QRS: 73 QRSD: 175 T: QT: QTc: 0 Interpretive Statements Normal sinus rhythm Left bundle branch block No previous ECG available for comparison Electronically Signed On 01-20-2022 19:42:24 EDT by Carmel Ansari
== END 2022-01-19 11:45 | disposition home health service (06) | DRG 637 ==
LOC: ED 02:57 → IMCU 07:48 → 3A 14:14
PROVIDERS: ADMIT Internal Medicine; ATTEND Internal Medicine
DX: E10.649 Type 1 diabetes mellitus with hypoglycemia without coma (principal); G93.41 Metabolic encephalopathy; I69.354 Hemiplegia and hemiparesis following cerebral infarction affecting left non-dominant side; N95.0 Postmenopausal bleeding; R68.0 Hypothermia, not associated with low environmental temperature; T38.3X5A Adverse effect of insulin and oral hypoglycemic [antidiabetic] drugs, initial encounter; Y92.89 Other specified places as the place of occurrence of the external cause; I95.9 Hypotension, unspecified; I50.9 Heart failure, unspecified; I11.0 Hypertensive heart disease with heart failure; Z79.82 Long term (current) use of aspirin; Z83.3 Family history of diabetes mellitus
CPT/HCPCS: 36415; 70450; 71111; 80048; 80053; 81001; 82962; 84484; 85025; 93005; G0378; Q0162; Q9967; J1650; J1815; J7030; J7040